=== PATIENT | male | born 1985 | race Caucasian/White ===

== ENCOUNTER 2017-07-27 21:35 | Emergency (ER) | payer SELFPAY ==
[2017-07-27] MEDS ORDERED: Ondansetron INJ* 2 MG/ML VIAL IV ONE (22:32)
[2017-07-27] MEDS ORDERED: NS 0.9% 1000 ML* 1,000 ML IV ONE (22:32)
--- NOTE | 2017-07-27 22:59 | RAD ---
INDICATION: Cough and fever COMPARISON: None TECHNIQUE: PA and lateral views of the chest were obtained. FINDINGS: The heart and mediastinum are normal in size and contour. The lungs are grossly clear. There is no evidence of large pleural effusion. Visualized bones are normal for the patient's age. There is no radiographic evidence of free air beneath the diaphragm IMPRESSION: No radiographic evidence of acute cardiopulmonary disease.
[2017-07-27 23:05] LABS: ABS Basophils 0.1 10^3/ul (0-0.2); ABS Eosinophils 0.2 10^3/ul (0-0.6); ABS Lymphocytes 1.5 10^3/ul (1.0-4.8); ABS Neutrophils 10.2 10^3/ul (1.5-7.7); ABS Nucleated RBC 0 10^3/ul; Eosinophil % 1.2 % (0-6); Hematocrit 45 % (42-52); Hemoglobin 15.5 g/dl (14.0-18.0); Lymphocyte % 11.5 % (25-47); Mean Corpuscular HGB Conc 34 g/dl (31-36); Mean Corpuscular Hemoglobin 31 pg (27-31); Mean Corpuscular Volume 90 fL (80-94); Nucleated Red Blood Cells % 0.2; Platelet Count 207 10^3/ul (150-450); Red Blood Count 4.99 10^6/ul (4.0-5.4); Red Cell Distribution Width 13 % (10.5-15); White Blood Count 12.9 10^3/ul (3.5-10.8)
[2017-07-27 23:30] LABS: EGFR Non-African American 94.7 (>60)
[2017-07-28] MEDS ORDERED: O ndansetron ODT 4MG 2TAB PRPK 4 MG PAK PO ONE (00:03)
--- NOTE | 2017-07-28 00:32 | ED ---
Nausea/Vomiting/Diarrhea HPI - HPI Summary HPI Summary: Patient is a 32-year-old male who presents emergency department for nausea, vomiting and abdominal cramping 1 day. Associated symptoms of low-grade fever. He also notes he had a productive cough since yesterday. Symptoms are moderate in severity. No current modifying factors. Patient notes family members have been sick recently as well. - History of Current Complaint Chief Complaint: EDNauseaVomitDiarrh Stated Complaint: VOMITING/FEVER Time Seen by Provider: 07/27/17 22:24 Hx Obtained From: Patient Onset/Duration: Sudden Onset Severity Initially: Moderate Severity Currently: Moderate Pain Intensity: 4 Location: Diffuse Character: Cramping Aggravating Factor(s): Nothing Alleviating Factor(s): Nothing Nausea/Vomiting Presence: Nauseated Vomiting Frequency: Daily Vomiting Characteristics: Retching, Nonbilious - Allergies/Home Medications Allergies/Adverse Reactions: Allergies Allergy/AdvReac Type Severity Reaction Status Date / Time bee venom protein (honey bee) Allergy Swelling Verified 07/27/17 22:36 Home Medications: Home Medications NK [No Home Medications Reported] 07/27/17 [History Confirmed 07/27/17] PMH/Surg Hx/FS Hx/Imm Hx Previously Healthy: Yes GI History: Reports: Hx Ulcer Infectious Disease History: No Infectious Disease History: Denies: Traveled Outside the [place] in Last 30 Days - Family History Known Family History: Positive: None Family History: R & n/C - Social History Occupation: Employed Full-time Lives: With Family Alcohol Use: None Hx Substance Use: No Substance Use Type: Reports: Marijuana Substance Use Comment - Amount & Last Used: occasionally Hx Tobacco Use: No Smoking Status (MU): Former Smoker Review of Systems Constitutional: Negative Positive: Fever, Chills Eyes: Negative ENT: Negative Cardiovascular: Negative Negative: Palpitations, Chest Pain Positive: Cough. Negative: Shortness Of Breath Positive: Abdominal Pain, Vomiting, Nausea. Negative: Diarrhea Genitourinary: Negative Skin: Negative Neurological: Negative All Other Systems Reviewed And Are Negative: Yes Physical Exam Triage Information Reviewed: Yes Vital Signs On Initial Exam: Initial Vitals Temp Pulse Resp BP Pulse Ox 100 F 84 16 116/64 95 07/27/17 21:44 07/27/17 21:44 07/27/17 21:44 07/27/17 21:44 07/27/17 21:44 Vital Signs Reviewed: Yes Appearance: Positive: Well-Appearing - Patient lying in bed in no acute distress. Skin: Positive: Warm, Dry Head/Face: Positive: Normal Head/Face Inspection Eyes: Positive: Normal Respiratory/Lung Sounds: Positive: Clear to Auscultation, Breath Sounds Present Cardiovascular: Positive: Normal, RRR Abdomen Description: Positive: Nontender, Soft Neurological: Positive: Normal, CN Intact II-III Psychiatric: Positive: Normal Diagnostics - Vital Signs Vital Signs Temp Pulse Resp BP Pulse Ox 07/27/17 23:00 79 98 07/27/17 22:47 89 97 07/27/17 21:44 100 F 84 16 116/64 95 - Laboratory Lab Results: Lab Results 07/27/17 07/27/17 Range/Units 22:52 22:52 WBC 12.9 H (3.5-10.8) 10^3/ul RBC 4.99 (4.0-5.4) 10^6/ul Hgb 15.5 (14.0-18.0) g/dl Hct 45 (42-52) % MCV 90 (80-94) fL MCH 31 (27-31) pg MCHC 34 (31-36) g/dl RDW 13 (10.5-15) % Plt Count 207 (150-450) 10^3/ul MPV 8.0 (7.4-10.4) um3 Neut % (Auto) 79.1 (38-83) % Lymph % (Auto) 11.5 L (25-47) % Bertie % (Auto) 7.5 H (0-7) % Eos % (Auto) 1.2 (0-6) % Baso % (Auto) 0.7 (0-2) % Absolute Neuts (auto) 10.2 H (1.5-7.7) 10^3/ul Absolute Lymphs (auto) 1.5 (1.0-4.8) 10^3/ul Absolute Monos (auto) 1.0 H (0-0.8) 10^3/ul Absolute Eos (auto) 0.2 (0-0.6) 10^3/ul Absolute Basos (auto) 0.1 (0-0.2) 10^3/ul Absolute Nucleated RBC 0 10^3/ul Nucleated RBC % 0.2 Sodium 137 L (139-145) mmol/L Potassium 3.5 (3.5-5.0) mmol/L Chloride 104 (101-111) mmol/L Carbon Dioxide 25 (22-32) mmol/L Anion Gap 8 (2-11) mmol/L BUN 9 (6-24) mg/dL Creatinine 0.92 (0.67-1.17) mg/dL Est GFR ( Amer) 121.9 (>60) Est GFR (Non-Af Amer) 94.7 (>60) BUN/Creatinine Ratio 9.8 (8-20) Glucose 101 H (70-100) mg/dL Calcium 9.6 (8.6-10.3) mg/dL Total Bilirubin 0.70 (0.2-1.0) mg/dL AST 23 (13-39) U/L ALT 14 (7-52) U/L Alkaline Phosphatase 83 (34-104) U/L Total Protein 7.4 (6.4-8.9) g/dL Albumin 4.6 (3.2-5.2) g/dL Globulin 2.8 (2-4) g/dL Albumin/Globulin Ratio 1.6 (1-3) Lipase 13 (11.0-82.0) U/L Result Diagrams: 07/27/17 22:52 07/27/17 22:52 Lab Statement: Any lab studies that have been ordered have been reviewed, and results considered in the medical decision making process. Naus/Vom/Diarrhea Course/Dx - Course Course Of Treatment: Patient presenting to the ER for vomiting and abdominal pain. Low-grade fever 100.0 Fahrenheit. Vital signs are stable. He is concerned IV fluids and Zofran. CBC mildly elevated at 12.9. Labs are otherwise unremarkable. Reexamination patient is resting comfortably. He has had no vomiting in the ER and is tolerating oral fluids. Patient was dispensed Zofran. Advised clear liquid diet 24 hours. Increase fluids. Given information for referral for PCP. To return to the ER symptoms change or worsen. - Differential Dx/Diagnosis Differential Diagnoses - Male: Hepatitis, Pancreatitis, Peptic Ulcer Disease, Esophagitis/Gastritis, Vomiting, Gastritis Condition At Discharge: Good Discharge - Sign-Out/Discharge Documenting (check all that apply): Discharge - Discharge Plan Condition: Good Disposition: HOME Patient Education Materials: Gastroenteritis (ED) Forms: *Work Release Referrals: [facility] [Outside] No Primary Care Phys,NOPCP [Primary Care Provider] - Additional Instructions: Call [facility] referral line for a PCP Cheyennefran as directed Increase fluids Clear liquid diet x 24 hours Return to ER if symptoms change or worsen - Billing Disposition and Condition Condition: GOOD Disposition: HOME
[2017-07-28 00:51] VITALS: BP 107/57
== END 2017-07-28 00:50 | disposition home or self-care (01) ==
LOC: ED 21:35
DX: K52.9 Noninfective gastroenteritis and colitis, unspecified (principal); R50.9 Fever, unspecified; R05 Cough; Z87.891 Personal history of nicotine dependence
CPT/HCPCS: 36415; 71046; 80053; 83690; 85025; 96374; 99284; A9270-GY; J2405

== ENCOUNTER 2017-10-05 16:30 | Emergency (ER) | payer OTHER ==
[2017-10-05 16:50] VITALS: BP 133/62
--- NOTE | 2017-10-05 17:04 | UC ---
Lower Extremity/Ankle HPI - HPI Summary HPI Summary: began with a small patch of cellulitis on the back of his left heel last night-( no known injury) awoke with 8 cm diameter and progressive lymphstreaking was ay his knee 30mins ago and is now 1/3 [address] up thigh- swelling and tender in lower 1/ 3 of calf - History of Current Complaint Chief Complaint: UCSkin Stated Complaint: L ANKLE - SKIN COMPLAINT Time Seen by Provider: 10/05/17 17:00 Hx Obtained From: Patient Onset/Duration: Sudden Onset, Lasting Days - 1, Worse Since - today and last 1 hour Severity Initially: Mild Severity Currently: Moderate Aggravating Factor(s): Standing, Ambulation Alleviating Factor(s): Nothing Able to Bear Weight: Yes - Allergies/Home Medications Allergies/Adverse Reactions: Allergies Allergy/AdvReac Type Severity Reaction Status Date / Time bee venom protein (honey bee) Allergy Swelling Verified 07/27/17 22:36 PMH/Surg Hx/FS Hx/Imm Hx Previously Healthy: Yes - Surgical History Surgical History: Yes Surgery Procedure, Year, and Place: T&A - Family History Known Family History: Positive: None - Social History Occupation: Unemployed Lives: With Family Alcohol Use: None Substance Use Type: Marijuana Substance Use Comment - Amount & Last Used: occasionally Smoking Status (MU): Former Smoker Review of Systems Constitutional: Fever, Chills Skin: Other - cellulitis left heel with streaking to mid thigh Eyes: Negative ENT: Negative Respiratory: Negative Cardiovascular: Negative Gastrointestinal: Negative Genitourinary: Negative Motor: Negative Neurovascular: Negative Musculoskeletal: Negative Neurological: Negative Psychological: Negative Is Patient Immunocompromised?: No All Other Systems Reviewed And Are Negative: Yes Physical Exam Triage Information Reviewed: Yes Appearance: No Pain Distress - mild, Ill-Appearing - mild, Thin Vital Signs: Initial Vital Signs Temp 100.6 F 10/05/17 16:46 Pulse 100 10/05/17 16:46 Resp 15 10/05/17 16:46 BP 133/62 10/05/17 16:46 Pulse Ox 98 10/05/17 16:46 Vital Signs Reviewed: Yes Eye Exam: Normal Eyes: Positive: Conjunctiva Clear ENT Exam: Normal ENT: Positive: Normal ENT inspection, Hearing grossly normal. Negative: Trismus , Muffled voice, Hoarse voice Neck exam: Normal Neck: Positive: Supple, Nontender Respiratory Exam: Normal Respiratory: Positive: Chest non-tender, No respiratory distress, No accessory muscle use Cardiovascular Exam: Normal Cardiovascular: Positive: Pulses Normal, Brisk Capillary Refill, Tachycardia Musculoskeletal Exam: Other Musculoskeletal: Positive: Strength Intact, ROM Intact, Edema @ - left lower leg Neurological Exam: Normal Neurological: Positive: Alert, Muscle Tone Normal Psychological Exam: Normal Skin: Positive: Other - 8 cm cellulitis , red warm swollen tender area back of left heel with lymph streaking to mid thigh Lower Extremity Course/Dx - Course Course Of Treatment: [facility] and [facility] - Differential Dx/Diagnosis Provider Diagnoses: cellulitis, lymph streaking left leg - Physician Notifications Time Discussed With Above Provider: 17:15 - Breanna Alicia [employer] Instructed by Provider To: Transfer Discharge - Sign-Out/Discharge Documenting (check all that apply): Discharge/Admit/Transfer - Discharge Plan Condition: Stable Disposition: HOME Discharge Disposition Comment: to [facility] by private car Patient Education Materials: Lymphangitis (ED) Referrals: No Primary Care Phys,NOPCP [Primary Care Provider] - HAROON Floyd [Medical Doctor] - - Billing Disposition and Condition Condition: STABLE Disposition: Home
== END 2017-10-05 17:10 | disposition home or self-care (01) ==
LOC: UCCORT 16:30
DX: L03.116 Cellulitis of left lower limb (principal); I89.8 Other specified noninfective disorders of lymphatic vessels and lymph nodes
CPT/HCPCS: 99212; G0463

== ENCOUNTER 2018-10-22 13:37 | Emergency (ER) | payer OTHER ==
[2018-10-22 13:53] VITALS: BP 94/50
--- NOTE | 2018-10-22 15:38 | UC ---
Skin Complaint HPI - HPI Summary HPI Summary: SEVERAL DAYS AGO PATIENT NOTICED A CIRCULAR BULL'S-EYE RASH ON HIS LEFT UPPER INNER THIGH. REPORTS HE HAD A TICK BITE AT THAT SAME AREA 2-3 WEEKS AGO. PATIENT DENIES FEVER, HEADACHE, BODY ACHES. - History of Current Complaint Chief Complaint: UCSkin Time Seen by Provider: 10/22/18 15:16 Stated Complaint: SKIN COMPLAINT Hx Obtained From: Patient Onset/Duration: Sudden Onset, Gradual Onset, Lasting Days, Still Present Timing: Constant Onset Severity: Mild Current Severity: Mild Pain Intensity: 2 Pain Scale Used: 0-10 Numeric Character: Redness Aggravating Factor(s): Nothing Alleviating Factor(s): Nothing Associated Signs & Symptoms: Positive: Negative - Allergy/Home Medications Allergies/Adverse Reactions: Allergies Allergy/AdvReac Type Severity Reaction Status Date / Time bee venom protein (honey bee) Allergy Swelling Verified 10/22/18 13:52 PMH/Surg Hx/FS Hx/Imm Hx GI/ History: Ulcer - Surgical History Surgical History: Yes Surgery Procedure, Year, and Place: T&A - Family History Known Family History: Positive: None Family History: R & n/C - Social History Alcohol Use: None Substance Use Type: Marijuana Substance Use Comment - Amount & Last Used: occasionally Smoking Status (MU): Former Smoker Review of Systems All Other Systems Reviewed And Are Negative: Yes Constitutional: Positive: Negative Skin: Positive: Rash Respiratory: Positive: Negative Cardiovascular: Positive: Negative Gastrointestinal: Positive: Negative Physical Exam Triage Information Reviewed: Yes Appearance: Well-Appearing, No Pain Distress, Well-Nourished Vital Signs: Initial Vital Signs Temp 99.5 F 10/22/18 13:48 Pulse 61 10/22/18 13:48 Resp 18 10/22/18 13:48 BP 94/50 10/22/18 13:48 Pulse Ox 98 10/22/18 13:48 Vital Signs Reviewed: Yes Eyes: Positive: Conjunctiva Clear ENT: Positive: Hearing grossly normal Neck: Positive: Supple Respiratory: Positive: No respiratory distress, No accessory muscle use Cardiovascular: Positive: Pulses Normal Abdomen Description: Positive: Soft Musculoskeletal: Positive: No Edema Neurological: Positive: Alert Psychological: Positive: Age Appropriate Behavior Skin: Positive: Rashes - 11CM DIAMETER ERYTHEMATOUS TARGET LESION LEFT UPPER INNER THIGH Course/Dx - Course Course Of Treatment: PT WITH TARGET LESION COSISTENT WITH EM RASH LEFT UPPER INNER THIGH AT SITE OF TICK ATTACHMENT 2-3 WEEKS AGO. OTHERWISE FEELS WELL BUT GIVEN HISTORY WILL COVER FOR LYME WITH DOXY BID X [address] FOLLOW-UP DR. LONDONO. - Diagnoses Provider Diagnosis: Erythema migrans (Lyme disease) Discharge - Sign-Out/Discharge Documenting (check all that apply): Patient Departure All imaging exams completed and their final reports reviewed: No Studies - Discharge Plan Condition: Stable Disposition: HOME Prescriptions: Doxycycline Monohydrate 1 cap PO BID #28 cap Patient Education Materials: Lyme Disease (ED) Referrals: [facility] [Outside] - If Needed Trent STARKEY,Saravanan Baldwin [Medical Doctor] - If Needed Additional Instructions: LYME DISEASE: You are suspected of having Lyme disease. Further testing may be necessary to confirm the diagnosis. Lyme disease is an infection spread through the bite of a deer tick. Symptoms include rash, fever, fatigue, joint swelling, and aches. Lyme disease can be treated with antibiotics. It is important that you take the entire course of medication. Call the physician if you develop severe headache, stiff neck, paralysis or "drooping" of either side of the face, or a worsening of any other symptom. The majority of patients with early Lyme disease who receive appropriate antibiotic therapy have complete resolution of the signs and symptoms of infection within 20 days and, in one trial, erythema migrans (the rash) and its associated symptoms resolved in a mean of five to six days. Patients who are more systemically ill at the beginning of treatment may take longer to recover. Some patients have mild subjective symptoms, such as headache, musculoskeletal pain, arthralgia, or fatigue, that persist for weeks to months after treatment. These subjective findings often resolve spontaneously, usually within six months , without further antibiotic therapy; they are not due to ongoing active Lyme disease. Almost all patients who have a satisfactory response to antibiotic therapy do well over the long-term. DOXYCYCLINE WILL MAKE YOU MORE SENSITIVE TO UV RAYS SO BE SURE TO TAKE EXTRA SUN PRECAUTIONS WHILE YOU ARE ON THIS MEDICATION. IF YOU HAVE ANY QUESTIONS ABOUT LYME DISEASE FOLLOW-UP WITH DR. LONDONO. CALL THE NUMBER BELOW FOR ASSISTANCE IN ESTABLISHING WITH A PCP An additional resource available to assist in finding the appropriate physician for your health care needs is the [facility] ([facility]). You may contact them by calling [phone]. - Billing Disposition and Condition Condition: STABLE Disposition: Home
== END 2018-10-22 15:30 | disposition home or self-care (01) ==
LOC: UCEAST 13:37
DX: A69.20 Lyme disease, unspecified (principal)
CPT/HCPCS: 99212; G0463

== ENCOUNTER 2023-02-02 12:59 | Inpatient (IN) ==
[2023-02-02 13:49] LABS: ABS Basophils 0.1 10^3/uL (0.0-0.1); ABS Eosinophils 0.2 10^3/uL (0.0-0.5); ABS Lymphocytes 1.5 10^3/uL (1.0-4.8); ABS Monocytes 0.7 10^3/uL (0.0-1.1); ABS Nucleated RBC 0.01 10^3/ul; Eosinophil % 1.9 %; Hematocrit 38.9 % (38-53); Hemoglobin 13.8 g/dL (13.2-16.3); Lymphocyte % 14.2 %; Mean Corpuscular Hemoglobin 32.4 pg (27-33); Mean Corpuscular Hgb Conc 35.6 g/dL (31-36); Mean Corpuscular Volume 91.1 fL (80-97); Mean Platelet Volume 7.7 fL (7.5-11.2); Platelet Count 227 10^3/uL (150-450); Red Blood Count 4.27 10^6/uL (4.06-5.63); Red Cell Distribution Width 13.2 % (12-17); White Blood Count 10.4 10^3/uL (3.6-10.2)
[2023-02-02 13:54] LABS: INR 1.04 (0.83-1.13)
[2023-02-02] MEDS ORDERED: fentaNYL 100 mcg/2 ml 50 MCG/ML VIAL IV SLOW PU ONE (14:04)
[2023-02-02 14:09] LABS: ALT 11 U/L (7-52); AST 19 U/L (13-39); Albumin 4.3 g/dL (3.2-5.2); Albumin/Globulin Ratio 1.8 (1-3); Alkaline Phosphatase 106 U/L (35-149); Anion Gap 5 mmol/L (2-16); Blood Urea Nitrogen 13 mg/dL (6-24); CO2 Carbon Dioxide 28 mmol/L (22-32); Calcium 9.4 mg/dL (8.6-10.3); Chloride 104 mmol/L (101-111); Creatinine, Serum 0.92 mg/dL (0.67-1.17); Globulin 2.4 g/dL (2-4); Glucose 129 mg/dL (70-100); Potassium 3.7 mmol/L (3.5-5.0); Sodium 137 mmol/L (135-145); Total Bilirubin 0.3 mg/dL (0.2-1.0); Total Protein 6.7 g/dL (6.4-8.9); eGFR CKD-EPI 109.2 (>60)
[2023-02-02 14:13] LABS: High Sens Troponin Baseline < 3 pg/mL (<20)
[2023-02-02] MEDS ORDERED: Morphine 4 MG/ML VIAL (1 ml) IV ONE (14:42)
[2023-02-02] MEDS ORDERED: Acetaminophen IV 1 GM/100ML 1,000 MG/100 ML BAG IV ONE (16:31)
[2023-02-03 05:50] LABS: Hemoglobin 13.3 g/dL (13.2-16.3)
[2023-02-05 06:15] LABS: ABS Basophils 0.1 10^3/uL (0.0-0.1); ABS Eosinophils 0.4 10^3/uL (0.0-0.5); ABS Lymphocytes 1.7 10^3/uL (1.0-4.8); ABS Monocytes 1.3 10^3/uL (0.0-1.1); ABS Neutrophils 7.9 10^3/uL (1.5-7.6); ABS Nucleated RBC 0.01 10^3/ul; Eosinophil % 3.8 %; Hematocrit 42.3 % (38-53); Hemoglobin 14.6 g/dL (13.2-16.3); Lymphocyte % 15.2 %; Mean Corpuscular Hemoglobin 31.7 pg (27-33); Mean Corpuscular Hgb Conc 34.4 g/dL (31-36); Mean Platelet Volume 8.6 fL (7.5-11.2); Platelet Count 240 10^3/uL (150-450); Red Cell Distribution Width 12.8 % (12-17); White Blood Count 11.5 10^3/uL (3.6-10.2)
[2023-02-05 06:34] LABS: Calcium 9.6 mg/dL (8.6-10.3); Creatinine, Serum 0.86 mg/dL (0.67-1.17); Potassium 3.8 mmol/L (3.5-5.0); eGFR CKD-EPI 113.7 (>60)
[2023-02-05 13:53] VITALS: BP 116/62
== END 2023-02-05 17:34 | disposition home or self-care (01) | DRG 143 ==
LOC: EDHOLD 12:59 → ED 12:59 → SUATTDRO 15:31 → MEDTELE 16:58
PROVIDERS: ADMIT Student in an Organized Health Care Education/Training Program; ATTEND Internal Medicine Hematology & Oncology